=== PATIENT | female | born 1940 | race Hispanic/Latino ===

== ENCOUNTER → 2017-09-25 | Outpatient (CLI) | payer MEDICARE ==
[~2017-09-25] MED LIST: LIDOCAINE/PRILOCAINE CREAM 5GM TUBE TP ONE
[2017-09-25 18:16] VITALS: BP 177/96
== END | disposition home or self-care (01) ==
LOC: WHH 13:25
PROVIDERS: ATTEND Family Medicine
DX: E11.622 Type 2 diabetes mellitus with other skin ulcer (principal); L98.411 Non-pressure chronic ulcer of buttock limited to breakdown of skin; L89.313 Pressure ulcer of right buttock, stage 3; L89.323 Pressure ulcer of left buttock, stage 3; G80.9 Cerebral palsy, unspecified; I10 Essential (primary) hypertension; I25.10 Atherosclerotic heart disease of native coronary artery without angina pectoris; E03.9 Hypothyroidism, unspecified; E78.5 Hyperlipidemia, unspecified; R32 Unspecified urinary incontinence; K21.9 Gastro-esophageal reflux disease without esophagitis; M17.9 Osteoarthritis of knee, unspecified; M81.0 Age-related osteoporosis without current pathological fracture
CPT/HCPCS: A4450; A6196; A6248; G0463; J3490

== ENCOUNTER → 2017-10-02 | Outpatient (CLI) | payer MEDICARE ==
[2017-10-02 17:29] VITALS: BP 189/89
== END | disposition home or self-care (01) ==
LOC: WHH 14:15
PROVIDERS: ATTEND Family Medicine
DX: L89.323 Pressure ulcer of left buttock, stage 3 (principal); L89.313 Pressure ulcer of right buttock, stage 3; G80.9 Cerebral palsy, unspecified; I10 Essential (primary) hypertension; K27.9 Peptic ulcer, site unspecified, unspecified as acute or chronic, without hemorrhage or perforation; R32 Unspecified urinary incontinence; E78.5 Hyperlipidemia, unspecified; I25.10 Atherosclerotic heart disease of native coronary artery without angina pectoris; M81.0 Age-related osteoporosis without current pathological fracture; K21.9 Gastro-esophageal reflux disease without esophagitis; E03.9 Hypothyroidism, unspecified; M17.9 Osteoarthritis of knee, unspecified
CPT/HCPCS: 11042; A4450; A6196; A6402; J3490

== ENCOUNTER → 2017-10-16 | Outpatient (CLI) | payer MEDICARE ==
[2017-10-16 15:36] VITALS: BP 156/87
== END | disposition home or self-care (01) ==
LOC: WHH 14:15
PROVIDERS: ATTEND Family Medicine
DX: E11.622 Type 2 diabetes mellitus with other skin ulcer (principal); L98.411 Non-pressure chronic ulcer of buttock limited to breakdown of skin; L89.323 Pressure ulcer of left buttock, stage 3; L89.313 Pressure ulcer of right buttock, stage 3; G80.9 Cerebral palsy, unspecified; E11.51 Type 2 diabetes mellitus with diabetic peripheral angiopathy without gangrene; I10 Essential (primary) hypertension; R32 Unspecified urinary incontinence; E78.5 Hyperlipidemia, unspecified; I25.10 Atherosclerotic heart disease of native coronary artery without angina pectoris; M81.0 Age-related osteoporosis without current pathological fracture; K21.9 Gastro-esophageal reflux disease without esophagitis; E03.9 Hypothyroidism, unspecified; M17.9 Osteoarthritis of knee, unspecified
CPT/HCPCS: A6213; G0463

== ENCOUNTER → 2017-10-23 | Outpatient (CLI) | payer MEDICARE ==
[2017-10-23 16:09] VITALS: BP 161/86
== END | disposition home or self-care (01) ==
LOC: WHH 14:30
PROVIDERS: ATTEND Family Medicine
DX: E11.622 Type 2 diabetes mellitus with other skin ulcer (principal); L98.411 Non-pressure chronic ulcer of buttock limited to breakdown of skin; L89.323 Pressure ulcer of left buttock, stage 3; L89.313 Pressure ulcer of right buttock, stage 3; G80.9 Cerebral palsy, unspecified; E11.51 Type 2 diabetes mellitus with diabetic peripheral angiopathy without gangrene; I10 Essential (primary) hypertension; R32 Unspecified urinary incontinence; E78.5 Hyperlipidemia, unspecified; I25.10 Atherosclerotic heart disease of native coronary artery without angina pectoris; M81.0 Age-related osteoporosis without current pathological fracture; K21.9 Gastro-esophageal reflux disease without esophagitis; E03.9 Hypothyroidism, unspecified; M17.9 Osteoarthritis of knee, unspecified
CPT/HCPCS: A6196; G0463

== ENCOUNTER → 2017-11-06 | Outpatient (CLI) | payer MEDICARE ==
[2017-11-06 17:21] VITALS: BP 180/77
== END | disposition home or self-care (01) ==
LOC: WHH 14:30
PROVIDERS: ATTEND Family Medicine
DX: E11.622 Type 2 diabetes mellitus with other skin ulcer (principal); L89.313 Pressure ulcer of right buttock, stage 3; L98.411 Non-pressure chronic ulcer of buttock limited to breakdown of skin; M81.0 Age-related osteoporosis without current pathological fracture; I25.10 Atherosclerotic heart disease of native coronary artery without angina pectoris; G80.8 Other cerebral palsy; I10 Essential (primary) hypertension; K21.9 Gastro-esophageal reflux disease without esophagitis; E78.5 Hyperlipidemia, unspecified; E03.9 Hypothyroidism, unspecified; M17.9 Osteoarthritis of knee, unspecified; E11.51 Type 2 diabetes mellitus with diabetic peripheral angiopathy without gangrene
CPT/HCPCS: A4450; A6213; G0463

== ENCOUNTER → 2017-11-20 | Outpatient (CLI) | payer MEDICARE ==
[2017-11-20 16:18] VITALS: BP 142/74
== END | disposition home or self-care (01) ==
LOC: WHH 14:30
PROVIDERS: ATTEND Family Medicine
DX: E11.622 Type 2 diabetes mellitus with other skin ulcer (principal); L89.313 Pressure ulcer of right buttock, stage 3; L98.411 Non-pressure chronic ulcer of buttock limited to breakdown of skin; M81.0 Age-related osteoporosis without current pathological fracture; I25.10 Atherosclerotic heart disease of native coronary artery without angina pectoris; G80.8 Other cerebral palsy; I10 Essential (primary) hypertension; K21.9 Gastro-esophageal reflux disease without esophagitis; E78.5 Hyperlipidemia, unspecified; E03.9 Hypothyroidism, unspecified; M17.9 Osteoarthritis of knee, unspecified; E11.51 Type 2 diabetes mellitus with diabetic peripheral angiopathy without gangrene
CPT/HCPCS: A6213; G0463; J3490

== ENCOUNTER → 2017-11-27 | Outpatient (CLI) | payer MEDICARE ==
[2017-11-27 17:26] VITALS: BP 139/71
== END | disposition home or self-care (01) ==
LOC: WHH 15:00
PROVIDERS: ATTEND Family Medicine
DX: E11.622 Type 2 diabetes mellitus with other skin ulcer (principal); L89.313 Pressure ulcer of right buttock, stage 3; L98.411 Non-pressure chronic ulcer of buttock limited to breakdown of skin; M81.0 Age-related osteoporosis without current pathological fracture; I25.10 Atherosclerotic heart disease of native coronary artery without angina pectoris; G80.8 Other cerebral palsy; I10 Essential (primary) hypertension; K21.9 Gastro-esophageal reflux disease without esophagitis; E78.5 Hyperlipidemia, unspecified; E03.9 Hypothyroidism, unspecified; M17.9 Osteoarthritis of knee, unspecified; E11.51 Type 2 diabetes mellitus with diabetic peripheral angiopathy without gangrene; R32 Unspecified urinary incontinence
CPT/HCPCS: A6213; A6402; G0463

== ENCOUNTER → 2017-12-11 | Outpatient (CLI) | payer MEDICARE ==
[2017-12-11 17:38] VITALS: BP 136/71
== END | disposition home or self-care (01) ==
LOC: WHH 14:45
PROVIDERS: ATTEND Family Medicine
DX: E11.622 Type 2 diabetes mellitus with other skin ulcer (principal); L89.313 Pressure ulcer of right buttock, stage 3; L98.411 Non-pressure chronic ulcer of buttock limited to breakdown of skin; M81.0 Age-related osteoporosis without current pathological fracture; I25.10 Atherosclerotic heart disease of native coronary artery without angina pectoris; G80.8 Other cerebral palsy; I10 Essential (primary) hypertension; K21.9 Gastro-esophageal reflux disease without esophagitis; E78.5 Hyperlipidemia, unspecified; E03.9 Hypothyroidism, unspecified; M17.9 Osteoarthritis of knee, unspecified; E11.51 Type 2 diabetes mellitus with diabetic peripheral angiopathy without gangrene; R32 Unspecified urinary incontinence
CPT/HCPCS: A6213; A6402; G0463

== ENCOUNTER → 2018-01-01 | Outpatient (CLI) | payer MEDICARE ==
[2018-01-01 13:31] VITALS: BP 157/78
== END | disposition home or self-care (01) ==
LOC: WHH 13:00
PROVIDERS: ATTEND Family Medicine
DX: E11.622 Type 2 diabetes mellitus with other skin ulcer (principal); L89.313 Pressure ulcer of right buttock, stage 3; L98.411 Non-pressure chronic ulcer of buttock limited to breakdown of skin; L89.322 Pressure ulcer of left buttock, stage 2; M81.0 Age-related osteoporosis without current pathological fracture; I25.10 Atherosclerotic heart disease of native coronary artery without angina pectoris; G80.8 Other cerebral palsy; I10 Essential (primary) hypertension; K21.9 Gastro-esophageal reflux disease without esophagitis; E78.5 Hyperlipidemia, unspecified; E03.9 Hypothyroidism, unspecified; M17.9 Osteoarthritis of knee, unspecified; E11.51 Type 2 diabetes mellitus with diabetic peripheral angiopathy without gangrene; R32 Unspecified urinary incontinence; I73.9 Peripheral vascular disease, unspecified
CPT/HCPCS: A6213; G0463

== ENCOUNTER → 2018-01-15 | Outpatient (CLI) | payer MEDICARE ==
[2018-01-15 17:19] VITALS: BP 137/68
== END | disposition home or self-care (01) ==
LOC: WHH 15:30
PROVIDERS: ATTEND Family Medicine
DX: E11.622 Type 2 diabetes mellitus with other skin ulcer (principal); L98.411 Non-pressure chronic ulcer of buttock limited to breakdown of skin; L89.313 Pressure ulcer of right buttock, stage 3; L89.323 Pressure ulcer of left buttock, stage 3; M81.0 Age-related osteoporosis without current pathological fracture; I25.10 Atherosclerotic heart disease of native coronary artery without angina pectoris; G80.8 Other cerebral palsy; I10 Essential (primary) hypertension; K21.9 Gastro-esophageal reflux disease without esophagitis; E78.5 Hyperlipidemia, unspecified; E03.9 Hypothyroidism, unspecified; M17.9 Osteoarthritis of knee, unspecified; E11.51 Type 2 diabetes mellitus with diabetic peripheral angiopathy without gangrene; R32 Unspecified urinary incontinence; I73.9 Peripheral vascular disease, unspecified
CPT/HCPCS: 11042; A6213

== ENCOUNTER → 2018-01-29 | Outpatient (CLI) | payer MEDICARE ==
[2018-01-29 17:29] VITALS: BP 143/70
== END | disposition home or self-care (01) ==
LOC: WHH 15:00
PROVIDERS: ATTEND Family Medicine
DX: E11.622 Type 2 diabetes mellitus with other skin ulcer (principal); L98.411 Non-pressure chronic ulcer of buttock limited to breakdown of skin; L89.323 Pressure ulcer of left buttock, stage 3; L89.313 Pressure ulcer of right buttock, stage 3; G80.9 Cerebral palsy, unspecified; R32 Unspecified urinary incontinence; K27.9 Peptic ulcer, site unspecified, unspecified as acute or chronic, without hemorrhage or perforation; I10 Essential (primary) hypertension; I25.810 Atherosclerosis of coronary artery bypass graft(s) without angina pectoris; E78.5 Hyperlipidemia, unspecified
CPT/HCPCS: G0463

== ENCOUNTER → 2018-01-30 | Outpatient (CLI) | payer MEDICARE | END | disposition home or self-care (01) | LOC: RAH 07:37 | PROVIDERS: ATTEND Internal Medicine Gastroenterology | DX: R10.10 Upper abdominal pain, unspecified (principal) | CPT/HCPCS: 76700 ==

== ENCOUNTER 2018-02-12 15:00 | Outpatient (CLI) | payer MEDICARE ==
[2018-02-12 15:45] VITALS: BP 138/72
== END 2018-02-12 16:16 | disposition home or self-care (01) ==
LOC: WHH 15:00
PROVIDERS: ATTEND Family Medicine
DX: E11.622 Type 2 diabetes mellitus with other skin ulcer (principal); L98.411 Non-pressure chronic ulcer of buttock limited to breakdown of skin; L89.323 Pressure ulcer of left buttock, stage 3; G80.9 Cerebral palsy, unspecified; R32 Unspecified urinary incontinence; K27.9 Peptic ulcer, site unspecified, unspecified as acute or chronic, without hemorrhage or perforation; E78.5 Hyperlipidemia, unspecified; I25.810 Atherosclerosis of coronary artery bypass graft(s) without angina pectoris; I10 Essential (primary) hypertension
CPT/HCPCS: G0463

== ENCOUNTER → 2018-09-10 | Outpatient (CLI) | payer MEDICARE ==
[~2018-09-10] MED LIST changes: +IOHEXOL 350 MG/ML 100ML INFUS..BTL IV ONE; -LIDOCAINE/PRILOCAINE CREAM 5GM TUBE TP ONE
== END | disposition home or self-care (01) ==
LOC: RAH 09-04 09:43
PROVIDERS: ATTEND Internal Medicine Gastroenterology
DX: K44.9 Diaphragmatic hernia without obstruction or gangrene (principal); K57.90 Diverticulosis of intestine, part unspecified, without perforation or abscess without bleeding; I70.90 Unspecified atherosclerosis; J98.11 Atelectasis; M47.895 Other spondylosis, thoracolumbar region
CPT/HCPCS: 74170; Q9967

== ENCOUNTER → 2019-01-22 | Outpatient (CLI) | payer MEDICARE | END | disposition home or self-care (01) | LOC: RAH 09:06 | PROVIDERS: ATTEND Internal Medicine Gastroenterology | DX: R10.10 Upper abdominal pain, unspecified (principal) | CPT/HCPCS: 76700 ==

== ENCOUNTER 2019-02-04 09:16 | Day surgery (SDC) | payer MEDICARE ==
[2019-02-04] VITALS (7 sets, daily range): BP systolic 113–180; BP diastolic 53–67
[~2019-02-04] VITALS: Ht 149.9 cm; Wt 72.6 kg
[~2019-02-04 09:16] MED LIST changes: -IOHEXOL 350 MG/ML 100ML INFUS..BTL IV ONE; +SODIUM CHLORIDE 0.9% 1000ML 1,000 ML IV ONE
[2019-02-04] MEDS ORDERED: SENN-107 PO (11:31)
[2019-02-04] MEDS ORDERED: LINA5TAB PO (11:31)
[2019-02-04] MEDS ORDERED: LISI10TA7 PO (11:31)
[2019-02-04] MEDS ORDERED: CARV6.25 PO (11:31)
[2019-02-04] MEDS ORDERED: PAIN RELIEF (11:31)
[2019-02-04] MEDS ORDERED: FAMO40TA7 PO (11:31)
[2019-02-04] MEDS ORDERED: FENO45CA2 PO (11:31)
[2019-02-04] MEDS ORDERED: OMEP40CA37 PO (11:31)
[2019-02-04] MEDS ORDERED: LEVO88TA7 PO (11:31)
[2019-02-04] MEDS ORDERED: SUCR1TAB2 PO (11:31)
[2019-02-04] MEDS ORDERED: ATOR10TA69 PO (11:31)
[2019-02-04] MEDS ORDERED: CA/D1TAB3 PO (11:31)
[2019-02-04] MEDS ORDERED: ASCO500W7 PO (11:31)
[2019-02-04] MEDS ORDERED: GLIP1TAB4 PO (11:31)
[2019-02-04] MEDS ORDERED: [UNRECOGNIZED DRUG - OTHER] (11:31)
[2019-02-04] MEDS ORDERED: AMLO5TAB9 PO (11:31)
[2019-02-04] MEDS ORDERED: PROPOFOL 10 MG/ML 20ML VIAL IV ONE (11:35)
[2019-02-04] MEDS ORDERED: LIDOCAINE HCL-MPF 2% 5ML VIAL ONE (11:36)
[2019-02-04] MEDS ORDERED: LIDOCAINE HCL 1% 20 ML VIAL ONE (11:39)
== END 2019-02-04 12:48 | disposition home or self-care (01) ==
LOC: DAH 09:16 → ENDO 09:16
PROVIDERS: ATTEND Internal Medicine Gastroenterology
DX: K31.7 Polyp of stomach and duodenum (principal); K29.50 Unspecified chronic gastritis without bleeding; K44.9 Diaphragmatic hernia without obstruction or gangrene; K31.89 Other diseases of stomach and duodenum; E78.5 Hyperlipidemia, unspecified; I10 Essential (primary) hypertension; D64.9 Anemia, unspecified; M19.90 Unspecified osteoarthritis, unspecified site; E03.9 Hypothyroidism, unspecified; Z79.899 Other long term (current) drug therapy; K21.9 Gastro-esophageal reflux disease without esophagitis; E11.9 Type 2 diabetes mellitus without complications; Z98.890 Other specified postprocedural states
CPT/HCPCS: 43239; 82948 ×2; 88305; 88342; 93005; A4606; J2704; J3490; J7030